=== PATIENT | male | born 1985 | race Caucasian/White ===

== ENCOUNTER 2021-03-11 11:50 | Emergency (ER) | payer SELFPAY ==
[~2021-03-11] VITALS: Ht 177.8 cm; Wt 68.0 kg
--- NOTE | 2021-03-11 12:21 | PHYS DOC ---
Past History Past Surgical History: No Surgical History (RICKIE TOPETE APRN) Alcohol Use: None (RICKIE TOPETE APRN) General Adult EDM: Chief Complaint: HEADACHE HPI: HPI: Patient is a 35-year-old male being seen in the ER for multiple complaints including headache, body aches, nausea, shortness of breath, nonproductive cough, loss of taste that started 2 days ago. Patient reports that headache is generalized he reports photophobia with his headache. He denies a history of headaches.. He denies vomiting, fevers, sick exposures, vision changes. Patient is not vaccinated for COVID-19. Patient is in no acute distress and his vital signs are stable. (RICKIE TOPETE APRN) Review of Systems: Review of Systems: 14 body systems of the review of systems have been reviewed. See HPI for pertinent positive and negative responses, otherwise all other systems are negative, nonpertinent or noncontributory (RICKIE TOPETE APRN) Allergies: Allergies: Allergies Coded Allergies Type Severity Reaction Last Updated Verified No Known Drug Allergies 03/11/21 No (RICKIE TOPETE APRN) Physical Exam: PE: Constitutional: Well developed, well nourished, no acute distress, non-toxic ap pearance. [] HENT: Normocephalic, atraumatic, bilateral external ears normal, oropharynx moist, no oral exudates, nose normal. [] Eyes: PERRLA, EOMI, conjunctiva normal, no discharge. [] Neck: Normal range of motion, no tenderness, supple, no stridor, no nuchal rigidity. [] Cardiovascular:Heart rate regular rhythm, no murmur [] Lungs & Thorax: Bilateral breath sounds clear to auscultation [] Abdomen: Bowel sounds normal, soft, no tenderness, no masses, no pulsatile masses, no active vomiting. [] Skin: Warm, dry, no erythema, no rash. [] Back: Normal range of motion Extremities: No tenderness, no cyanosis, no clubbing, ROM intact, no edema. [] Neurologic: Alert and oriented X 3, normal motor function, normal sensory function, no focal deficits noted. [] Psychologic: Affect normal, judgement normal, mood normal. [] (RICKIE TOPETE APRN) Current Patient Data: Labs: Laboratory Tests Test 03/11/21 15:14 White Blood Count 4.2 x10^3/uL Red Blood Count 4.80 x10^6/uL Hemoglobin 13.8 g/dL Hematocrit 41.7 % Mean Corpuscular Volume 87 fL Mean Corpuscular Hemoglobin 29 pg Mean Corpuscular Hemoglobin Concent 33 g/dL Red Cell Distribution Width 14.3 % Platelet Count 155 x10^3/uL Neutrophils (%) (Auto) 59 % Lymphocytes (%) (Auto) 27 % Monocytes (%) (Auto) 13 % Eosinophils (%) (Auto) 0 % Basophils (%) (Auto) 1 % Neutrophils # (Auto) 2.5 x10^3uL Lymphocytes # (Auto) 1.1 x10^3/uL Monocytes # (Auto) 0.6 x10^3/uL Eosinophils # (Auto) 0.0 x10^3/uL Basophils # (Auto) 0.0 x10^3/uL Sodium Level 136 mmol/L Potassium Level 3.8 mmol/L Chloride Level 103 mmol/L Carbon Dioxide Level 27 mmol/L Anion Gap 6 Blood Urea Nitrogen 15 mg/dL Creatinine 1.0 mg/dL Estimated GFR (Cockcroft-Gault) 84.5 BUN/Creatinine Ratio 15 Glucose Level 102 mg/dL Lactic Acid Level 0.7 mmol/L Calcium Level 7.2 mg/dL Total Bilirubin 0.3 mg/dL Aspartate Amino Transf (AST/SGOT) 24 U/L Alanine Aminotransferase (ALT/SGPT) 73 U/L Alkaline Phosphatase 54 U/L Total Protein 6.2 g/dL Albumin 2.8 g/dL Albumin/Globulin Ratio 0.8 Current Medications Medications (Trade) Dose Ordered Sig/Mae Route PRN Reason Start Time Stop Time Status Last Admin Dose Admin Prochlorperazine Edisylate (Compazine) 10 mg 1X ONCE IV 03/11/21 12:30 03/11/21 12:31 DC 03/11/21 13:26 Diphenhydramine HCl (Benadryl) 25 mg 1X ONCE IVP 03/11/21 12:30 03/11/21 12:31 DC 03/11/21 13:23 Ketorolac Tromethamine (Toradol 15mg Vial) 15 mg 1X ONCE IVP 03/11/21 12:30 03/11/21 12:31 DC 03/11/21 13:25 Sodium Chloride 1,000 ml @ 1,000 mls/hr 1X ONCE IV 03/11/21 12:30 03/11/21 13:29 DC 03/11/21 13:22 Sodium Chloride 1,000 ml @ 1,000 mls/hr 1X ONCE IV 03/11/21 15:30 03/11/21 16:29 DC 03/11/21 15:26 Vital Signs: Vital Signs Date Time Temp Pulse Resp B/P (MAP) Pulse Ox O2 Delivery O2 Flow Rate FiO2 03/11/21 11:55 98.5 80 18 102/70 96 Room Air (RICKIE TOPETE APRN) EKG: EKG: [] (RICKIE TOPETE APRN) Radiology/Procedures: Radiology/Procedures: PROCEDURE: CHEST AP ONLY EXAM: Chest, single view. HISTORY: Shortness of air. COMPARISON: None. FINDINGS: A frontal view of the chest is obtained. There is no infiltrate, pleural effusion or pneumothorax. There are small nodular opacities overlying both mid to lower lungs due to suspected nipple shadows. The heart is normal in size. IMPRESSION: 1. No acute pulmonary finding. 2. Small nodular opacity overlying both mid and lower lungs likely due to nipple shadows. Radiograph follow-up including nipple markers can be performed to exclude the possibility of a pulmonary nodule in these locations. Electronically signed by: Zaira Justin MD (03/11/2021 12:43 PM) [id number] DICTATED AND SIGNED BY: ZAIRA JUSTIN MD DATE: 03/11/21 1242 CC: EMERGENCY,DEPARTMENT; RICKIE TOPETE APRN; PCP,NO ~MTH0 0 [] (RICKIE TOPETE APRN) Heart Score: C/O Chest Pain: No Risk Factors: Risk Factors: DM, Current or recent (<one month) smoker, HTN, HLP, family history of CAD, obesity. Risk Scores: Score 0 - 3: 2.5% MACE over next 6 weeks - Discharge Home Score 4 - 6: 20.3% MACE over next 6 weeks - Admit for Clinical Observation Score 7 - 10: 72.7% MACE over next 6 weeks - Early Invasive Strategies (RICKIE TOPETE APRN) Course & Med Decision Making: Course & Med Decision Making Pertinent Labs and Imaging studies reviewed. (See chart for details) Patient is a 35-year-old male being seen in the ER for multiple complaints. Several consisting with symptoms of COVID-19 including headache, body aches, nausea, shortness of breath, nonproductive cough, loss of taste. Patient is not vaccinated for COVID-19. Patient tested for COVID-19 in the ER and will be notified of those results when they become available. Patient treated in the ER for headache with Benadryl, Compazine, Toradol and IV fluids.. Chest x-ray was performed since patient was complaining of shortness of breath and a cough. It was negative for any acute findings. Patient was treated with 2 L of normal saline. Patient is an IV drug user and he is a hard stick. Multiple ER staff attempted to draw blood from patient and they were unsuccessful. Patient's vital signs are stable at this time. He is not tachycardic, afebrile, not hypoxic. CBC unremarkable. CMP unremarkable. Patient does not have lactic acidosis. Patient's blood pressure was 90-100 systolic. This is most likely his baseline. He is not symptomatic with this blood pressure and he is resting comfortably in bed. I discussed with patient all findings and diagnostic testing as well as the need to follow-up with PCP for further evaluation and treatment or return to the ER if any new or worsening symptoms. Strict return precautions were also discussed at length. Patient voiced understanding and agreement with the plan. Patient is hemodynamically stable at the time of disposition. (RICKIE TOPETE APRN) Dragon Disclaimer: Dragon Disclaimer: This electronic medical record was generated, in whole or in part, using a voice recognition dictation system. (RICKIE TOPETE APRN) Attending Co-Sign The patient was seen and interviewed as well as examined at the bedside. The chart was reviewed. The case was discussed. Agree with the plan of care. (PAULINA HINDS DO) Departure Departure: Impression: Primary Impression: Person under investigation for COVID-19 Disposition: 01 HOME / SELF CARE / HOMELESS Condition: GOOD Referrals: PCP,LINO (PCP) Patient Instructions: Cough, Adult Additional Instructions: You were seen in the ER for multiple complaints. It is likely that you have COVID-19 given your symptoms. Your physical exam was reassuring. A chest x-ray was performed and it was negative for any acute findings. Your headache was treated in the ER and you were given IV fluids. Your blood work was unremarkable. It would be beneficial to you to discontinue your IV drug use. You can take Tylenol or ibuprofen for your headache or body aches. You were tested for COVID-19 in the ER today. You will receive your results in approximately 2 to 3 days. Please self isolate until you obtain these results. Increase your fluids and rest at home. If you develop worsening of your shortness of breath, worsening of your cough, lightheadedness, you pass out, uncontrollable nausea or vomiting, fevers refractory to treatment, chest pain please return to the ER immediately. EMERGENCY DEPARTMENT GENERAL DISCHARGE INSTRUCTIONS Thank you for coming to [facility] (ED) today and trusting us with you care. We trust that you had a positivie experience in our Emergency Department. If you wish to speak to the department management, you may call the director at [phone]. YOUR FOLLOW UP INSTRUCTIONS ARE FOLLOWS: 1. Do you have a private Doctor? If you do not have a private doctor, please ask for a resource list of physicians or clinics that may be able to assist you with follow up care. 2. The Emergency Physician has interpreted your x-rays. The X-Ray specialist will also review them. If there is a change in the findings, you will be notified in 48 hours when at all possible. 3. A lab test or culture has been done, your results will be reviewed and you will be notified if you need a change in treatment. ADDITIONAL INSTRUCTIONS AND INFORMATION: 1. Your care today has been supervised by a physician who is specially trained in emergency care. Many problems require more than one evaluation for a complete diagnosis and treatment. We recommend that you schedule your follow up appointment as recomm ended to ensure complete treatment of you illness or injury. If you are unable to obtain follow up care and continue to have a problem, or if your condition worsens, we recommend that you return to the ED. 2. We are not able to safely determine your condition over the phone nor are we able to give sound medical advice over the phone. For these safety reasons, if you call for medical advice we will ask you to come to the ED for further evaluation. 3. If you have any questions regarding these discharge instructions please call the ED at [phone]. SAFETY INFORMATION: In the interest of safety, wellness, and injury prevention; we encourage you to wear your sealbelt, if you smoke; quite smoking, and we encourage family to use a protective helmet for bicycling and other sporting events that present an increased risk for head injury. IF YOUR SYMPTOMS WORSEN OR NEW SYMPTOMS DEVELOP, OR YOU HAVE CONCERNS ABOUT YOUR CONDITION; OR IF YOUR CONDITION WORSENS WHILE YOU ARE WAITING FOR YOUR FOLLOW UP APPOINTMENT; EITHER CONTACT YOUR PRIMARY CARE DOCTOR, THE PHYSICIAN WHOSE NAME AND NUMBER YOU WERE GIVEN, OR RETURN TO THE ED IMMEDIATELY. RICKIE TOPETE APRN Mar 11, 2021 12:21 PAULINA HINDS DO Mar 14, 2021 21:00
[2021-03-11] MEDS ORDERED: PROCHLORPERAZINE 10 MG/2 ML VIAL. IV ONE (12:30)
[2021-03-11] MEDS ORDERED: IV NORMAL SALINE 1,000ML 1,000 ML IV ONE ×2 (12:30→15:30)
[2021-03-11] MEDS ORDERED: diphenhydrAMINE 50 MG/ML VIAL IVP ONE (12:30)
[2021-03-11] MEDS ORDERED: KETOROLAC 15 MG/ML VIAL. IVP ONE (12:30)
--- NOTE | 2021-03-11 12:45 | RAD ---
EXAM: Chest, single view. HISTORY: Shortness of air. COMPARISON: None. FINDINGS: A frontal view of the chest is obtained. There is no infiltrate, pleural effusion or pneumo thorax. There are small nodular opacities overlying both mid to lower lungs due to suspected nipple s hadows. The heart is normal in size. IMPRESSION: 1. No acute pulmonary finding. 2. Small nodular opacity overlying both mid and lower lungs likely due to nipple shadows. Radiograph follow-up including nipple markers can be performed to exclude the possibility of a pulmonary nodule in these locations. Electronically signed by: Zaira Justin MD (03/11/2021 12:43 PM) [id number]
[2021-03-11 16:15] LABS: BASO % 1 % (0-3); EOS % 0 % (0-3); HEMATOCRIT 41.7 % (39.0-53.0); HEMOGLOBIN 13.8 g/dL (13.0-17.5); LYMPH # 1.1 x10^3/uL (1.0-4.8); LYMPH % 27 % (24-48); MEAN CORPUSCULAR HEMOGLOBIN 29 pg (25-35); MEAN CORPUSCULAR HGB CONC 33 g/dL (31-37); MEAN CORPUSCULAR VOLUME 87 fL (79-100); MONO # 0.6 x10^3/uL (0.0-1.1); MONO % 13 % (0-9); NEUT # 2.5 x10^3uL (1.8-7.7); NEUT % 59 % (31-73); PLATELET COUNT 155 x10^3/uL (140-400); RED CELL DISTRIBUTION WIDTH 14.3 % (11.5-14.5); WHITE BLOOD COUNT 4.2 x10^3/uL (4.0-11.0)
[2021-03-11 16:16] LABS: CALCIUM 7.2 mg/dL (8.5-10.1); GFR 84.5; POTASSIUM 3.8 mmol/L (3.5-5.1)
[2021-03-11 16:23] LABS: ALBUMIN 2.8 g/dL (3.4-5.0); ALBUMIN/GLOBULIN RATIO 0.8 (1.0-1.7); TOTAL BILIRUBIN 0.3 mg/dL (0.2-1.0); TOTAL PROTEIN 6.2 g/dL (6.4-8.2)
[2021-03-11 16:50] VITALS: BP 91/55
== END 2021-03-11 16:56 | disposition home or self-care (01) ==
LOC: ER 11:50
DX: U07.1 COVID-19 (principal); R51.9 Headache, unspecified
CPT/HCPCS: 36415; 71045; 80053; 83605; 85025; 96361; 96374; 96375; 99284; C9803; J0780; J1200; J1885; J7030; U0003

== ENCOUNTER 2021-06-12 15:56 | Emergency (ER) | payer SELFPAY ==
[~2021-06-12] VITALS: Ht 180.3 cm; Wt 68.2 kg
[2021-06-12 16:08] VITALS: BP 137/77
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
[2021-06-12] MEDS ORDERED: DOXYCYCLINE HYCLATE 100 MG TABLET PO ONE (16:30)
--- NOTE | 2021-06-12 17:53 | RAD ---
XR HAND_RIGHT 3 VIEWS, XR RT WRIST 3VIEWS History: Reason: RIGHT HAND SWELLING AFTER TRAUMA / Spl. Instructions: / History: Technique: 3 views right wrist and 3 views right hand Comparison: None. Findings: Normal alignment of the wrist. No acute fracture. Triangular density projecting over the radial aspec t of the wrist measures 0.7 x 0.3 cm. Normal alignment of the hand. No acute fracture. Impression: 1. No acute osseous abnormality. 2. Triangular density projecting over the radial aspect of the wrist, may represent foreign body. Electronically signed by: Diallo Mauricio DO (06/12/2021 5:50 PM) [facility]
[2021-06-12] MEDS ORDERED: DOXY100C3 PO (17:57)
== END 2021-06-12 18:10 | disposition home or self-care (01) ==
LOC: ER 15:56
DX: S61.411D Laceration without foreign body of right hand, subsequent encounter (principal); L03.113 Cellulitis of right upper limb; F15.20 Other stimulant dependence, uncomplicated; X58.XXXD Exposure to other specified factors, subsequent encounter
CPT/HCPCS: 73110; 73130; 99284